=== PATIENT | male | born 1980 | race Caucasian/White ===

== ENCOUNTER 2020-12-16 09:10 | Day surgery (SDC) | payer OTHER, SELFPAY ==
[2020-12-10 15:18] VITALS: BMI 36.9
--- NOTE | 2020-12-14 14:25 | HO.ANESPROP2 ---
Documented by User: Antonia Ashley 12/14/20 14:25 HPI - Anesthesia Eval Consult details Narrative: 40yo M for Colonoscopy PMFSH Past Medical History Medical History Asthma COVID-19 vaccine administered History of ADHD History of anxiety History of fatty infiltration of liver Hx of renal calculi Lab test negative for COVID-19 virus Surgical History Surgical History History of excision of pilonidal cyst History of testicular surgery Hx of cholecystectomy Hx of cystoscopy Hx of hand surgery Social History Social History Are you a primary insurance healthcare representative to a significant other at home: No Do you presently have visiting nurse or other home services: No Smoking Status: Current every day smoker Smoking Quit Date: [id number] now Use of substances other than those prescribed or required for medical reasons: No Have you been hit, kicked, punched, or otherwise hurt by someone within the past year? If so, by whom?: No Advance Directives Information Provided: No Recently lost weight without trying: No Meds Allergies Allergy/AdvReac Type Severity Reaction Status Date / Time bupropion [From Wellbutrin] Allergy Intermediate Hives Verified 12/16/20 09:20 Home Medications Medication Instructions Recorded Confirmed Last Taken Type albuterol sulfate [ProAir HFA] 1 inh INHALATION QID PRN 12/10/20 12/10/20 Unknown History dextroamphetamine-amphetamine 30 mg PO BID 12/10/20 12/10/20 Unknown History [Adderall] dicyclomine 1 cap PO QID 12/10/20 12/10/20 Unknown History ibuprofen 800 mg PO TID PRN 12/10/20 12/10/20 Unknown History sertraline 100 mg PO DAILY 12/10/20 12/10/20 Unknown History trazodone 100 mg PO BEDTIME PRN 12/10/20 12/10/20 Unknown History Exam Exam Date and Time: December 14, 2020 1425 Height,Weight and Vital Signs: Height 5 ft 9 in Weight 113.398 kg Assessment and Plan Assessment Anesthesia Assessment: Chart Reviewed Documented by User: Jasmin Dudley 12/16/20 09:28 [facility] Past Medical History Medical History Asthma COVID-19 vaccine administered History of ADHD History of anxiety History of fatty infiltration of liver Hx of renal calculi Lab test negative for COVID-19 virus Surgical History Surgical History History of excision of pilonidal cyst History of testicular surgery Hx of cholecystectomy Hx of cystoscopy Hx of hand surgery Social History Social History Are you a primary insurance healthcare representative to a significant other at home: No Do you presently have visiting nurse or other home services: No Smoking Status: Current every day smoker Smoking Quit Date: [id number] now Use of substances other than those prescribed or required for medical reasons: No Have you been hit, kicked, punched, or otherwise hurt by someone within the past year? If so, by whom?: No Advance Directives Information Provided: No Recently lost weight without trying: No Meds Allergies Allergy/AdvReac Type Severity Reaction Status Date / Time bupropion [From Wellbutrin] Allergy Intermediate Hives Verified 12/16/20 09:20 Home Medications Medication Instructions Recorded Confirmed Last Taken Type albuterol sulfate [ProAir HFA] 1 inh INHALATION QID PRN 12/10/20 12/10/20 Unknown History dextroamphetamine-amphetamine 30 mg PO BID 12/10/20 12/10/20 Unknown History [Adderall] dicyclomine 1 cap PO QID 12/10/20 12/10/20 Unknown History ibuprofen 800 mg PO TID PRN 12/10/20 12/10/20 Unknown History sertraline 100 mg PO DAILY 12/10/20 12/10/20 Unknown History trazodone 100 mg PO BEDTIME PRN 12/10/20 12/10/20 Unknown History Exam Airway Mallampati Class: III TM Dist: >3cm Neck ROM: Full
[2020-12-16 09:31] VITALS: BP 132/83; PULSE 82; RESP 16; TEMP 36.5; O2SAT 97
[2020-12-16] MEDS: Lactated Ringers 1,000 ML 100 ML IVCONT (09:55)
[2020-12-16 11:01] VITALS: BP 105/63; PULSE 91; RESP 20; TEMP 36.8; O2SAT 96
--- NOTE | 2020-12-16 11:07 | PM.OP ---
Brief Operative Note Date of Service: 12/16/20 Pre-op diagnosis: Abnormal CT of colon, diarrhea Post-op diagnosis: other (R/O colitis, otherwise normal colonoscopy) Procedure: Colonoscopy to cecum and TI with biopsies Surgeon: Horacio Nino Anesthesia: MAC Estimated blood loss (mL): 5.0 Pathology: other (A. Terminal ileum B. Ascending colon C. Colon at 40cm) Condition: stable Disposition: PACU
[2020-12-16 11:16] VITALS: BP 121/73; PULSE 77; RESP 17; TEMP 36.8; O2SAT 98
--- NOTE | 2020-12-16 11:18 | OP_ITS ---
SURGEON: Horacio Nino MD INDICATIONS: The patient presents for evaluation of irregular bowel movements with diarrhea, and abnormal CAT scan of colon. PREOPERATIVE DIAGNOSIS: POSTOPERATIVE DIAGNOSIS: PROCEDURE PERFORMED: Colonoscopy to cecum and terminal ileum with biopsies. Full consent has been obtained from him for this, including risks of bleeding and perforation. ESTIMATED BLOOD LOSS: COMPLICATIONS: ANESTHESIA: Monitored anesthesia care. ASSISTANTS: SPECIMENS: PREOPERATIVE DIAGNOSES: Irregular bowel movements and abnormal CAT scan of colon. POSTOPERATIVE DIAGNOSES: Irregular bowel movements and abnormal CAT scan of colon, normal colonoscopy, rule out microscopic colitis. DESCRIPTION OF PROCEDURE: The patient was placed in the left lateral decubitus position. The digital rectal exam revealed no abnormalities. The Olympus video pediatric colonoscope was entered into the rectum and advanced easily to the cecum. Once in the cecum, I did identify normal-appearing cecal pouch with appendiceal orifice and a normal-appearing ileocecal valve. The terminal ileum was cannulated and appeared normal. Biopsies were obtained. The scope was withdrawn back in the colon. The entire cecum and ileocecal valve appeared normal. The scope was then slowly withdrawn assessing all mucosal surfaces carefully. Preparation was excellent. I did not visualize any sign of polyps, colitis, nor angiodysplasia. Biopsies were obtained in the ascending colon and at 40 cm. In the rectum, scope was retroflexed visualizing normal rectal mucosa and no pathology. The scope was straightened and withdrawn from the patient. He tolerated the procedure well and was returned to the recovery area in stable condition. IMPRESSION: 1. Rule out microscopic colitis. 2. Normal colonoscopy. PLAN: The results of the biopsies will be checked. In regard to his irregular bowel movements, I do feel these are related to a component of irritable bowel syndrome. He has been advised to continue to use dicyclomine on a p.r.n. basis. He was advised not to use any aspirin and NSAIDs for 1 week. In regard to the episodes of more severe pain, I do feel these are related to his known kidney stones and he may need to go back to the urologist to further review that with them. I did advise him to see me in 2 to 3 months for a followup visit as well. This has been discussed with his . MD BE Flood/MARION / [id number]
== END 2020-12-16 11:43 | disposition home or self-care (01) ==
PROVIDERS: PCP Nurse Practitioner Family; Visit Provider Internal Medicine
PROC: 0DJD8ZZ Inspection of Lower Intestinal Tract, Via Natural or Artificial Opening Endoscopic (ICD-10-PCS; CPT 45378; principal; 2020-12-16 09:50)
DX: R93.3 Abnormal findings on diagnostic imaging of other parts of digestive tract (principal); R19.4 Change in bowel habit; R19.7 Diarrhea, unspecified; J45.909 Unspecified asthma, uncomplicated; Z87.442 Personal history of urinary calculi; Z90.49 Acquired absence of other specified parts of digestive tract; F17.290 Nicotine dependence, other tobacco product, uncomplicated; Z79.899 Other long term (current) drug therapy
CPT/HCPCS: 45380; 88305